=== PATIENT | female | born 2005 | race Caucasian/White ===

== ENCOUNTER 2024-02-18 20:00 | Emergency (ER) | payer SELFPAY ==
[~2024-02-18] VITALS: Ht 182.9 cm; Wt 74.8 kg
[2024-02-18 21:16] LABS: APPEARANCE,URINE CLOUDY (CLEAR); BILIRUBIN,URINE NEGATIVE (NEGATIVE); BLOOD, URINE 2+ Ery/uL (NEGATIVE); COLOR,URINE YELLOW (YELLOW); KETONES,URINE TRACE mg/dL (NEGATIVE); LEUKOCYTE ESTERASE ,URINE 2+ (NEGATIVE); NITRITE, URINE POSITIVE (NEGATIVE); PH,URINE 8.5 (5.0-8.0); PROTEIN,URINE 2+ mg/dl (NEGATIVE); UGLUCOSE NEGATIVE (NEGATIVE)
[2024-02-18 21:22] LABS: BACTERIA,URINE Moderate /HPF (None Seen); SQUAMOUS EPITHELIAL CELL,UR Moderate /HPF (None Seen)
[2024-02-18 21:23] LABS: ADD URINE CULTURE YES; WBC,URINE TOO NUMEROUS TO COUN /HPF (0-3)
[2024-02-18] MEDS ORDERED: NITR100C PO (21:39)
[2024-02-18 23:51] VITALS: BP 118/69; TEMP 98.3; O2SAT 98
== END 2024-02-18 23:51 | disposition home or self-care (01) ==
LOC: ER 20:03
DX: N39.0 Urinary tract infection, site not specified (principal)
CPT/HCPCS: 81001; 87086-TC